=== PATIENT | male | born 1965 | race Caucasian/White ===

== ENCOUNTER 2019-12-04 08:00 | Outpatient (RCR) | payer MEDICARE, SELFPAY ==
[2019-08-31 08:11] LABS: Basophils Percent Auto 0.5 % (0.2-1.2); Eosinophils Absolute Auto 0.1 K/mm3 (0-0.3); Eosinophils Percent Auto 1.6 % (0-4.4); Hematocrit 39.9 % (42.0-52.0); Hemoglobin 14.5 g/dL (14.0-18.0); Immature Granulocyte Absolute 0.01 K/mm3 (0.00-0.031); Immature Granulocyte Percent A 0.1 % (0-0.5); Lymphocytes Absolute Auto 1.73 K/mm3 (0.9-3.2); Lymphocytes Percent Auto 21.5 % (18.3-44.2); Mean Corpuscular HGB Conc 36.3 g/dl (32-36); Mean Corpuscular Hemoglobin 32.2 pg (26-34); Mean Corpuscular Volume 88.5 fl (80-100); Mean Platelet Volume 10.8 fl (7.4-10.4); Monocytes Absolute Auto 0.6 K/mm3 (0.1-0.6); Monocytes Percent Auto 6.9 % (2.6-8.5); Neutrophils Absolute Auto 5.6 K/mm3 (1.3-6.7); Neutrophils Percent Auto 69.4 % (45.5-73.1); Platelet Count Result 169 k/mm3 (150-375); Red Blood Count 4.51 M/mm3 (4.6-6.20); Red Cell Distribution Width 12.1 % (11.5-14.5); White Blood Count 8.1 K/mm3 (4.5-10.0)
[2019-08-31 08:21] LABS: Blood Urea Nitrogen 17 mg/dL (8-26); Carbon Dioxide 28 mmol/L (22-30); Chloride 98 mmol/L (98-109); Estimated CRCL calculation 74 ml/min; Estimated Glomerular Filt Rate > 60; Glucose 214 mg/dL (70-105); Potassium 3.8 mmol/L (3.5-4.9); Sodium 137 mmol/L (138-146)
[2019-08-31 09:39] VITALS: BMI 28.3
[2019-08-31 09:56] VITALS: BP 120/87; PULSE 96; RESP 16; TEMP 36; O2SAT 99
[2019-08-31] MEDS: OCTREOTIDE 20 MG IM (10:13)
[2019-08-31 12:27] LABS: Alanine Aminotransferase 28 U/L (4-50); Albumin Level 4.5 g/dL (3.5-5.1); Alkaline Phosphatase 99 U/L (38-126); Aspartate Amino Transferase 29 U/L (17-59); Bilirubin,Total 0.7 mg/dL (0.2-1.3); Blood Urea Nitrogen 17 mg/dL (9-20); Calcium 12.2 mg/dL (8.4-10.2); Carbon Dioxide 28 mmol/L (22-30); Chloride 96 mmol/L (98-107); Estimated CRCL calculation 90 ml/min; Estimated Glomerular Filt Rate > 60; Glucose 212 mg/dL (75-110); Sodium 134 mmol/L (137-145)
[2019-09-28 12:21] LABS: Basophils Absolute Auto 0.1 K/mm3 (0.0-0.1); Basophils Percent Auto 0.8 % (0.2-1.2); Eosinophils Absolute Auto 0.3 K/mm3 (0-0.3); Hematocrit 40.2 % (42.0-52.0); Hemoglobin 14.3 g/dL (14.0-18.0); Immature Granulocyte Absolute 0.02 K/mm3 (0.00-0.031); Immature Granulocyte Percent A 0.3 % (0-0.5); Lymphocytes Absolute Auto 1.48 K/mm3 (0.9-3.2); Lymphocytes Percent Auto 22.8 % (18.3-44.2); Mean Corpuscular HGB Conc 35.6 g/dl (32-36); Mean Corpuscular Volume 89.9 fl (80-100); Mean Platelet Volume 10.4 fl (7.4-10.4); Monocytes Absolute Auto 0.3 K/mm3 (0.1-0.6); Monocytes Percent Auto 4.3 % (2.6-8.5); Neutrophils Absolute Auto 4.4 K/mm3 (1.3-6.7); Neutrophils Percent Auto 67.8 % (45.5-73.1); Platelet Count Result 211 k/mm3 (150-375); Red Blood Count 4.47 M/mm3 (4.6-6.20); Red Cell Distribution Width 12.6 % (11.5-14.5); White Blood Count 6.5 K/mm3 (4.5-10.0)
[2019-09-28 12:24] LABS: Blood Urea Nitrogen 8 mg/dL (8-26); Carbon Dioxide 28 mmol/L (22-30); Chloride 101 mmol/L (98-109); Estimated CRCL calculation 81 ml/min; Estimated Glomerular Filt Rate > 60; Glucose 231 mg/dL (70-105); Potassium 4.3 mmol/L (3.5-4.9); Sodium 137 mmol/L (138-146)
[2019-09-28 12:46] VITALS: BP 144/96; PULSE 83; RESP 18; TEMP 36.4; O2SAT 99
[2019-09-28] MEDS: OCTREOTIDE 20 MG IM (12:49)
[2019-09-28 16:43] LABS: Alanine Aminotransferase 86 U/L (4-50); Albumin Level 4.4 g/dL (3.5-5.1); Alkaline Phosphatase 128 U/L (38-126); Aspartate Amino Transferase 87 U/L (17-59); Bilirubin,Total 0.7 mg/dL (0.2-1.3); Blood Urea Nitrogen 9 mg/dL (9-20); Calcium 11.8 mg/dL (8.4-10.2); Carbon Dioxide 25 mmol/L (22-30); Chloride 99 mmol/L (98-107); Estimated CRCL calculation 100 ml/min; Estimated Glomerular Filt Rate > 60; Glucose 229 mg/dL (75-110); Potassium 4.7 mmol/L (3.4-5.0); Sodium 138 mmol/L (137-145)
[2019-10-26 13:45] VITALS: BP 156/92; PULSE 91; RESP 16; TEMP 36.4; O2SAT 96
[2019-10-26] MEDS: OCTREOTIDE 20 MG IM (14:02)
[2019-12-04 08:36] LABS: Basophils Absolute Auto 0.1 K/mm3 (0.0-0.1); Basophils Percent Auto 0.7 % (0.2-1.2); Eosinophils Absolute Auto 0.3 K/mm3 (0-0.3); Eosinophils Percent Auto 3.3 % (0-4.4); Hematocrit 41.4 % (42.0-52.0); Hemoglobin 14.9 g/dL (14.0-18.0); Immature Granulocyte Absolute 0.02 K/mm3 (0.00-0.031); Immature Granulocyte Percent A 0.2 % (0-0.5); Lymphocytes Absolute Auto 2.55 K/mm3 (0.9-3.2); Lymphocytes Percent Auto 29.1 % (18.3-44.2); Mean Corpuscular Volume 88.8 fl (80-100); Mean Platelet Volume 10.5 fl (7.4-10.4); Monocytes Absolute Auto 0.6 K/mm3 (0.1-0.6); Monocytes Percent Auto 6.5 % (2.6-8.5); Neutrophils Absolute Auto 5.3 K/mm3 (1.3-6.7); Neutrophils Percent Auto 60.2 % (45.5-73.1); Platelet Count Result 169 k/mm3 (150-375); Red Blood Count 4.66 M/mm3 (4.6-6.20); Red Cell Distribution Width 12.6 % (11.5-14.5); White Blood Count 8.8 K/mm3 (4.5-10.0)
[2019-12-04 08:40] LABS: Blood Urea Nitrogen 20 mg/dL (8-26); Carbon Dioxide 27 mmol/L (22-30); Chloride 99 mmol/L (98-109); Estimated CRCL calculation 80 ml/min; Estimated Glomerular Filt Rate > 60; Glucose 309 mg/dL (70-105); Potassium 3.9 mmol/L (3.5-4.9); Sodium 135 mmol/L (138-146)
--- NOTE | 2019-12-04 10:13 | PC.NURSE ---
Patient's did not show for appointment today.
[2019-12-04 13:05] LABS: Alanine Aminotransferase 34 U/L (4-50); Albumin Level 4.3 g/dL (3.5-5.1); Alkaline Phosphatase 145 U/L (38-126); Aspartate Amino Transferase 44 U/L (17-59); Bilirubin,Total 0.9 mg/dL (0.2-1.3); Blood Urea Nitrogen 20 mg/dL (9-20); Calcium 11.9 mg/dL (8.4-10.2); Carbon Dioxide 30 mmol/L (22-30); Chloride 98 mmol/L (98-107); Estimated CRCL calculation 99 ml/min; Estimated Glomerular Filt Rate > 60; Glucose 300 mg/dL (75-110); Potassium 4.2 mmol/L (3.4-5.0); Sodium 133 mmol/L (137-145)
== END 2019-12-04 10:07 | disposition other institution (70) ==
LOC: AMCINF 08:00
PROVIDERS: Visit Provider Internal Medicine Hematology & Oncology
DX: C7A.8 Other malignant neuroendocrine tumors (principal); I10 Essential (primary) hypertension; N17.9 Acute kidney failure, unspecified; E11.42 Type 2 diabetes mellitus with diabetic polyneuropathy; E83.52 Hypercalcemia; K21.9 Gastro-esophageal reflux disease without esophagitis; G93.41 Metabolic encephalopathy; G40.309 Generalized idiopathic epilepsy and epileptic syndromes, not intractable, without status epilepticus; F31.9 Bipolar disorder, unspecified; F17.210 Nicotine dependence, cigarettes, uncomplicated; R45.851 Suicidal ideations; R45.850 Homicidal ideations; Z79.4 Long term (current) use of insulin; Z86.73 Personal history of transient ischemic attack (TIA), and cerebral infarction without residual deficits
CPT/HCPCS: 36415; 80048; 80053; 85025; 96372; 96401; 96402; J2353

== ENCOUNTER 2020-05-24 01:52 | Emergency (ER) | payer MEDICARE, MEDICAID, SELFPAY ==
--- NOTE | ~2020-05-24 | XR_ITS ---
XR ankle RT min 3V DATE: 05/24/2020 03:19 INDICATION: Lateral right ankle pain following a fall 2 days ago TECHNIQUE: 4 views COMPARISON: None FINDINGS: No fracture or dislocation of the ankle or disruption of the ankle mortise. No periosteal r eaction or bone destruction. IMPRESSION: Negative Reviewed, dictated and finalized at location A. IMPRESSION: Negative
[2020-05-24 01:54] VITALS: BP 166/100; PULSE 85; RESP 16; TEMP 36.7; O2SAT 100
--- NOTE | 2020-05-24 02:46 | PC.NURSE ---
Patient acting belligerent towards staff stating he needs pain medications. ROBERT Rapp ordered Tylenol, but patient refused medication saying it won't do anything. ROBERT Rapp informed patient he would not be receiving extra pain medication since patient was just treated at [facility]. Patient records being requested from [facility] at this time.
--- NOTE | 2020-05-24 02:50 | PC.NURSE ---
PT REQUESTED TO SPEAK WITH CLERK TELEVISION [employer]. EXPLAINED TO PATIENT THAT THE DOCTOR HAD ORDERED HIM TYLENOL FOR PAIN AND THE PATIENT REFUSED. PT STATES HE WAS SEEN AT [facility] FOR THE SAME ISSUE AND GIVEN 2 SHOTS AND SENT ON HIS WAY . I EXPLAINED TO PATIENT THAT WE THE DR HAS REQUESTED THE RECORDS FROM [facility] AND WOULD GO FROM THERE. PT STATES WELL GET THEM ALL READY I HAVE BEEN HERE FOR AN HOUR . I EXPLAINED TO THE PATIENT THAT WE WOULD NEED TO WAIT FOR THEM TO FAX THE RECORDS TO US WHICH COULD TAKE SOME TIME. PT STATES I AM GOING TO COME BACK IN HERE AND YELL AND SCREAM AND TALK TO A CLERK [employer]VISION [employer], I AM READY TO GET UP OUT OF HERE, I WILL FUCKING WALK OUT RIGHT NOW .
--- NOTE | 2020-05-24 03:14 | PC.NURSE ---
Patient in room walking around shaking bed rail. Patient was advised to stay in bed to reduce chance of fall. Patient began to roll around in bed and yell stating the pain was too much.
--- NOTE | 2020-05-24 03:18 | PC.NURSE ---
CALLED TO PATIENT ROOM, PATIENT STILL UPSET THAT WE ARE NOT GIVING HIM SOMETHING BESIDES TYLENOL. I EXPLAINED TO HIM THAT THE DR WOULD BE THE ONE TO HAVE TO GIVE HIM SOMETHING AND OF RIGHT NOW, TYLENOL IS THE ONLY MEDICATION ORDERED. PT STATES TELL HIM FUCK YOU . PT STATES HE IS LEAVING.
--- NOTE | 2020-05-24 03:28 | ED.BACK ---
HPI - Back Pain/Injury General Chief Complaint: Back Pain/Injury Stated Complaint: back pain x 10 years Time Seen by Provider: 05/24/20 02:10 History of Present Illness HPI Narrative: Patient is a 54-year-old male who presents ER with reports of back pain. States earlier this evening he slipped and fell backwards landing on his back causing pain. Reports he also has a chronic condition of his back that causes chronic pain. The pain chronically radiates down his legs. When he fell he thinks he also injured his hips as well. Consequently patient initially went to [facility]. Reports he had imaging performed there and that they gave him 2 doses of pain medication but did nothing so he came here for further evaluation and management of his pain. He also reports that he thinks he broke his ankle in his fall because it now ailes him. He did not have any imaging of his ankle at that time. Patient is a very poor historian and cannot give details about his medical history or who his doctors are. He does report he has some type of metastatic cancer that was partially treated with chemotherapy Related Data Home Medications Medication Instructions Recorded Confirmed atorvastatin [Lipitor] 40 mg PO DAILY 10/08/19 10/26/19 diazepam [Valium] 5 mg PO TID PRN 10/08/19 10/26/19 diclofenac sodium [Voltaren] 2 g TOPICAL QID 10/08/19 10/26/19 escitalopram oxalate [Lexapro] 20 mg PO DAILY 10/08/19 10/26/19 fenofibrate micronized 134 mg PO DAILY 10/08/19 10/26/19 insulin glargine [Lantus Solostar 40 unit SUBCUT DAILY 10/08/19 10/26/19 U-100 Insulin] ketoconazole [Nizoral] 1 applic TOPICAL DAILY 10/08/19 10/26/19 levetiracetam [Keppra] 1,000 mg PO BID 10/08/19 10/26/19 lidocaine [Lidoderm] 1 patch TOPICAL DAILY 10/08/19 10/26/19 lisinopril [Prinivil] 10 mg PO DAILY 10/08/19 10/26/19 morphine 15 mg PO Q12H 10/08/19 10/26/19 oxycodone 10 mg PO Q6H PRN 10/08/19 10/26/19 pantoprazole [Protonix] 80 mg PO QAM 10/08/19 10/26/19 prazosin 2 mg PO HS 10/08/19 10/26/19 pregabalin [Lyrica] 150 mg PO BID 10/08/19 10/26/19 quetiapine [Seroquel] 100 mg PO HS 10/08/19 10/26/19 sennosides [Senokot] 8.6 mg PO BID 10/08/19 10/26/19 sitagliptin [Januvia] 80 mg PO DAILY 10/08/19 10/26/19 tizanidine [Zanaflex] 2 - 4 mg PO Q6-8H PRN 10/08/19 10/26/19 Allergies Allergy/AdvReac Type Severity Reaction Status Date / Time ibuprofen Allergy Mild Hives Verified 05/24/20 01:58 metformin Allergy Mild Hives Verified 05/24/20 01:58 tramadol Allergy Mild Hives Verified 05/24/20 01:58 Review of Systems Constitutional: Constitutional: Denies chills, Denies fever(s) and Denies weakness Musculoskeletal: Musculoskeletal: Reports back pain, Reports arthralgias and Denies muscle cramps Neurologic: Denies focal weakness and Denies numbness PMFSH Past Medical History Medical History (Updated 05/24/20 @ 03:35 by Yvan Rapp MD) Degenerative disc disease Diabetes mellitus GERD (gastroesophageal reflux disease) HLD (hyperlipidemia) HTN (hypertension) Manic bipolar I disorder Pancreatic cancer Seizure disorder Suicidal ideation Surgical History Surgical History (Updated 05/24/20 @ 03:30 by Yvan Rapp MD) No history of previous surgery Family History Family History (Updated 09/29/19 @ 09:16 by Hailee Almean MD) Son No known health problems Mother Dementia Depression Father Heart disease Social History Social History (Updated 09/29/19 @ 09:18 by Hailee Aleman MD) Smoking packs per day: 1 Smoking cigarettes per day: 20.0 Years smoked: 11 Smoking pack-years: 11.00 Smoking status: Former smoker Tobacco type: cigarettes Smoking end date: 08/29/18 Gender identity (if verbalized by the patient): Male Spiritual care concerns: No Exam Narrative: Exam Narrative: GENERAL: Well-appearing, well-nourished, and in no acute distress. HEAD: Normocephalic, atraumatic. EXTREMITIES: Normal range of motion and n
--- NOTE | 2020-05-24 03:30 | PC.NURSE ---
PD CALLED TO HAVE PATIENT LEAVE PROPERTY.
== END 2020-05-24 03:25 | disposition left against medical advice (07) ==
PROVIDERS: Emergency Provider Emergency Medicine
DX: Z76.5 Malingerer [conscious simulation] (principal); F17.210 Nicotine dependence, cigarettes, uncomplicated; E11.9 Type 2 diabetes mellitus without complications; Z79.4 Long term (current) use of insulin; K21.9 Gastro-esophageal reflux disease without esophagitis; E78.5 Hyperlipidemia, unspecified; I10 Essential (primary) hypertension; F31.9 Bipolar disorder, unspecified; G40.909 Epilepsy, unspecified, not intractable, without status epilepticus
CPT/HCPCS: 73610; 99283